=== PATIENT | male | born 1945 | race Caucasian/White ===

== ENCOUNTER 2021-02-07 10:21 | Inpatient (IN) ==
[2021-02-09] MEDS ORDERED: Nitroglycerin 0.4 MG TAB.SUBL SL PRN (17:23)
[2021-02-09] MEDS: *HR* Metformin 500 MG TABLET PO SCH (21:05)
[2021-02-09] MEDS: Pregabalin 75 MG CAPSULE PO SCH (21:05)
[2021-02-09] MEDS: valACYclovir 500 MG TABLET PO SCH (21:06)
[2021-02-09] MEDS: Budesonide/Formoterol 160/4.5 1 PUFF INH IH SCH (21:23)
[2021-02-10 07:36] LABS: Basophils # 0.1 K/mcL (0.0-0.2); Basophils % 0.4 %; Hematocrit 34.7 % (37.5-50.1); Hemoglobin 11.1 g/dL (12.9-16.9); Lymphocytes # 4.3 K/mcL (0.6-4.6); Lymphocytes % 28.2 %; Mean Corpuscular Hemoglobin 30.7 pg (28.0-33.3); Mean Corpuscular Volume 95.9 fL (83.0-100.0); Mean Platelet Volume 11.8 fL (9.4-12.4); Monocytes # 1.3 K/mcL (0.0-1.3); Monocytes % 8.2 %; Neutrophils # 9.3 K/mcL (1.6-8.9); Platelet Count 208 K/mcL (140-400); Red Blood Count 3.62 M/mcL (4.19-5.50); Red Cell Distribution Width 14.1 % (11.5-14.5); Segmented Neutrophils % 61.2 %; White Blood Count 15.2 K/mcL (4.3-11.1)
[2021-02-10 08:11] LABS: BUN/Creatinine Ratio 48 (6-26); Blood Urea Nitrogen 47 mg/dL (8-23); Calcium 8.7 mg/dL (8.6-10.3); Carbon Dioxide 45 mEq/L (23-29); Chloride 93 mEq/L (98-107); Glucose 191 mg/dL (70-105); Osmolality,Calculated 309 (280-300); Potassium 5.1 mEq/L (3.5-5.1); Sodium 141 mEq/L (136-145); eGFR For African Americans > 60 (> 60); eGFR For Non-African Americans > 60 (> 60)
[2021-02-10] MEDS: Fenofibrate 54 MG TABLET PO SCH (08:44)
[2021-02-10] MEDS: Isosorbide MONOnitrate (24 HR) 30 MG TAB.ER.24H PO SCH (08:45)
[2021-02-10] MEDS: *HR* Rivaroxaban 10 MG TABLET PO SCH (08:45)
[2021-02-10] MEDS: dexAMETHasone 4 MG TABLET PO SCH (08:45)
[2021-02-10] MEDS: Pregabalin 75 MG CAPSULE PO SCH ×2 (08:45→20:31)
[2021-02-10] MEDS: Bumetanide 1 MG TABLET PO SCH ×2 (08:45→16:52)
[2021-02-10] MEDS: Cyanocobalamin (B-12) 1,000 MCG TABLET PO SCH (08:45)
[2021-02-10] MEDS: *HR* Metformin 500 MG TABLET PO SCH ×2 (08:45→20:31)
[2021-02-10] MEDS: Spironolactone 25 MG TABLET PO SCH (08:46)
[2021-02-10] MEDS: amLODIPine 5 MG TABLET PO SCH (08:47)
[2021-02-10] MEDS: *HR* Glimepiride 2 MG TABLET PO SCH (08:47)
[2021-02-10] MEDS: Famotidine 20 MG TABLET PO SCH (08:47)
[2021-02-10] MEDS: allopurinoL 300 MG TABLET PO SCH (08:47)
[2021-02-10] MEDS: Finasteride 5 MG TABLET PO SCH (08:48)
[2021-02-10] MEDS: Budesonide/Formoterol 160/4.5 1 PUFF INH IH SCH ×2 (10:03→20:43)
[2021-02-10] MEDS ORDERED: Dextrose Gel 15 GM/37.5 ML TUBE PO PRN ×2 (11:55)
[2021-02-10] MEDS ORDERED: *HR* Dextrose 50 % in Water (Vial) 50 ML VIAL IVP PRN (11:55)
[2021-02-10] MEDS ORDERED: D5% in Water 1,000 ML IVC PRN (11:55)
[2021-02-10] MEDS: Insulin LISPRO 300 UNITS/3 ML VIAL SUBQ SCH ×2 (12:15→16:52)
[2021-02-10] MEDS: valACYclovir 500 MG TABLET PO SCH (16:52)
[2021-02-10] MEDS: Loratadine 10 MG TABLET PO SCH (16:52)
[2021-02-10] MEDS: Sennosides/Docusate Sodium TABLET PO SCH (20:29)
[2021-02-10] MEDS: acetaZOLAMIDE 250 MG TABLET PO SCH (20:30)
[2021-02-10] MEDS: Insulin DETEMIR 100 UNIT/ML X5UNITS SUBQ SCH (20:34)
[2021-02-10] MEDS ORDERED: Insulin DETEMIR 100 UNIT/ML X5UNITS SUBQ SCH (21:00)
[2021-02-11 08:13] LABS: BUN/Creatinine Ratio 39 (6-26); Blood Urea Nitrogen 44 mg/dL (8-23); Calcium 8.4 mg/dL (8.6-10.3); Carbon Dioxide 42 mEq/L (23-29); Chloride 96 mEq/L (98-107); Glucose 101 mg/dL (70-105); Osmolality,Calculated 301 (280-300); Potassium 4.3 mEq/L (3.5-5.1); Sodium 140 mEq/L (136-145); eGFR For African Americans > 60 (> 60); eGFR For Non-African Americans > 60 (> 60)
[2021-02-11] MEDS: Insulin LISPRO 300 UNITS/3 ML VIAL SUBQ SCH ×3 (08:50→16:30)
[2021-02-11] MEDS: Bumetanide 1 MG TABLET PO SCH ×2 (08:56→16:58)
[2021-02-11] MEDS: *HR* Metformin 500 MG TABLET PO SCH ×2 (08:56→22:09)
[2021-02-11] MEDS: Cyanocobalamin (B-12) 1,000 MCG TABLET PO SCH (08:57)
[2021-02-11] MEDS: *HR* Rivaroxaban 10 MG TABLET PO SCH (08:57)
[2021-02-11] MEDS: Finasteride 5 MG TABLET PO SCH (08:57)
[2021-02-11] MEDS: Fenofibrate 54 MG TABLET PO SCH (08:57)
[2021-02-11] MEDS: Sennosides/Docusate Sodium TABLET PO SCH ×2 (08:57→22:09)
[2021-02-11] MEDS: allopurinoL 300 MG TABLET PO SCH (08:57)
[2021-02-11] MEDS: amLODIPine 5 MG TABLET PO SCH (08:58)
[2021-02-11] MEDS: dexAMETHasone 4 MG TABLET PO SCH (08:58)
[2021-02-11] MEDS: Isosorbide MONOnitrate (24 HR) 30 MG TAB.ER.24H PO SCH (08:58)
[2021-02-11] MEDS: acetaZOLAMIDE 250 MG TABLET PO SCH ×2 (08:59→22:08)
[2021-02-11] MEDS: Insulin DETEMIR 100 UNIT/ML X5UNITS SUBQ SCH ×2 (08:59→22:12)
[2021-02-11] MEDS: *HR* Glimepiride 2 MG TABLET PO SCH (08:59)
[2021-02-11] MEDS: Pregabalin 75 MG CAPSULE PO SCH ×2 (08:59→22:08)
[2021-02-11] MEDS: Famotidine 20 MG TABLET PO SCH (08:59)
[2021-02-11] MEDS: Budesonide/Formoterol 160/4.5 1 PUFF INH IH SCH ×2 (09:51→21:29)
[2021-02-11] MEDS: valACYclovir 500 MG TABLET PO SCH (16:57)
[2021-02-11] MEDS: Loratadine 10 MG TABLET PO SCH (16:58)
[2021-02-12] MEDS: Insulin LISPRO 300 UNITS/3 ML VIAL SUBQ SCH ×3 (08:25→16:34)
[2021-02-12] MEDS: *HR* Metformin 500 MG TABLET PO SCH ×3 (08:26→21:05)
[2021-02-12] MEDS: Sennosides/Docusate Sodium TABLET PO SCH ×2 (08:26→21:06)
[2021-02-12] MEDS: Famotidine 20 MG TABLET PO SCH (08:26)
[2021-02-12] MEDS: Bumetanide 1 MG TABLET PO SCH ×2 (08:27→17:42)
[2021-02-12] MEDS: allopurinoL 300 MG TABLET PO SCH (08:27)
[2021-02-12] MEDS: *HR* Glimepiride 2 MG TABLET PO SCH (08:27)
[2021-02-12] MEDS: Finasteride 5 MG TABLET PO SCH (08:27)
[2021-02-12] MEDS: Cyanocobalamin (B-12) 1,000 MCG TABLET PO SCH (08:27)
[2021-02-12] MEDS: Pregabalin 75 MG CAPSULE PO SCH ×2 (08:27→21:07)
[2021-02-12] MEDS: *HR* Rivaroxaban 10 MG TABLET PO SCH (08:27)
[2021-02-12] MEDS: amLODIPine 5 MG TABLET PO SCH (08:27)
[2021-02-12] MEDS: Isosorbide MONOnitrate (24 HR) 30 MG TAB.ER.24H PO SCH (08:27)
[2021-02-12] MEDS: acetaZOLAMIDE 250 MG TABLET PO SCH ×2 (08:28→21:07)
[2021-02-12] MEDS: dexAMETHasone 4 MG TABLET PO SCH (08:28)
[2021-02-12] MEDS: Fenofibrate 54 MG TABLET PO SCH (08:28)
[2021-02-12] MEDS: Insulin DETEMIR 100 UNIT/ML X5UNITS SUBQ SCH ×2 (09:33→20:59)
[2021-02-12] MEDS: Budesonide/Formoterol 160/4.5 1 PUFF INH IH SCH ×2 (09:41→20:39)
[2021-02-12] MEDS: valACYclovir 500 MG TABLET PO SCH (17:42)
[2021-02-12] MEDS: Loratadine 10 MG TABLET PO SCH (17:43)
[2021-02-13 07:23] LABS: BUN/Creatinine Ratio 35 (6-26); Blood Urea Nitrogen 36 mg/dL (8-23); Calcium 8.4 mg/dL (8.6-10.3); Carbon Dioxide 35 mEq/L (23-29); Chloride 100 mEq/L (98-107); Glucose 99 mg/dL (70-105); Osmolality,Calculated 298 (280-300); Potassium 3.7 mEq/L (3.5-5.1); Sodium 140 mEq/L (136-145); eGFR For African Americans > 60 (> 60); eGFR For Non-African Americans > 60 (> 60)
[2021-02-13 08:10] LABS: Hematocrit 36.2 % (37.5-50.1); Hemoglobin 11.5 g/dL (12.9-16.9); Mean Corpuscular HGB Conc 31.8 g/dL (31.6-35.5); Mean Corpuscular Hemoglobin 30.7 pg (28.0-33.3); Mean Corpuscular Volume 96.8 fL (83.0-100.0); Mean Platelet Volume 12.4 fL (9.4-12.4); Platelet Count 166 K/mcL (140-400); Red Blood Count 3.74 M/mcL (4.19-5.50); Red Cell Distribution Width 14.3 % (11.5-14.5); White Blood Count 14.2 K/mcL (4.3-11.1)
[2021-02-13] MEDS: Insulin LISPRO 300 UNITS/3 ML VIAL SUBQ SCH ×3 (08:18→17:13)
[2021-02-13] MEDS: Bumetanide 1 MG TABLET PO SCH ×2 (08:28→17:22)
[2021-02-13] MEDS: *HR* Metformin 500 MG TABLET PO SCH ×2 (08:28→20:40)
[2021-02-13] MEDS: acetaZOLAMIDE 250 MG TABLET PO SCH (08:28)
[2021-02-13] MEDS: Cyanocobalamin (B-12) 1,000 MCG TABLET PO SCH (08:29)
[2021-02-13] MEDS: Famotidine 20 MG TABLET PO SCH (08:29)
[2021-02-13] MEDS: *HR* Rivaroxaban 10 MG TABLET PO SCH (08:29)
[2021-02-13] MEDS: Finasteride 5 MG TABLET PO SCH (08:29)
[2021-02-13] MEDS: allopurinoL 300 MG TABLET PO SCH (08:30)
[2021-02-13] MEDS: *HR* Glimepiride 2 MG TABLET PO SCH (08:30)
[2021-02-13] MEDS: Fenofibrate 54 MG TABLET PO SCH (08:30)
[2021-02-13] MEDS: amLODIPine 5 MG TABLET PO SCH (08:30)
[2021-02-13] MEDS: Isosorbide MONOnitrate (24 HR) 30 MG TAB.ER.24H PO SCH (08:30)
[2021-02-13] MEDS: Sennosides/Docusate Sodium TABLET PO SCH ×2 (08:30→20:40)
[2021-02-13] MEDS: Pregabalin 75 MG CAPSULE PO SCH ×2 (08:30→20:40)
[2021-02-13] MEDS: Insulin DETEMIR 100 UNIT/ML X5UNITS SUBQ SCH ×2 (08:30→20:40)
[2021-02-13] MEDS: Budesonide/Formoterol 160/4.5 1 PUFF INH IH SCH ×2 (11:15→22:57)
[2021-02-13] MEDS: Loratadine 10 MG TABLET PO SCH (17:22)
[2021-02-13] MEDS: valACYclovir 500 MG TABLET PO SCH (17:22)
[2021-02-14] MEDS: Insulin LISPRO 300 UNITS/3 ML VIAL SUBQ SCH ×3 (07:24→16:33)
[2021-02-14] MEDS: Insulin DETEMIR 100 UNIT/ML X5UNITS SUBQ SCH ×2 (09:39→20:10)
[2021-02-14] MEDS: amLODIPine 5 MG TABLET PO SCH (09:39)
[2021-02-14] MEDS: Sennosides/Docusate Sodium TABLET PO SCH ×2 (09:40→20:09)
[2021-02-14] MEDS: *HR* Metformin 500 MG TABLET PO SCH ×2 (09:40→20:10)
[2021-02-14] MEDS: allopurinoL 300 MG TABLET PO SCH (09:40)
[2021-02-14] MEDS: Famotidine 20 MG TABLET PO SCH (09:40)
[2021-02-14] MEDS: *HR* Glimepiride 2 MG TABLET PO SCH (09:40)
[2021-02-14] MEDS: Isosorbide MONOnitrate (24 HR) 30 MG TAB.ER.24H PO SCH (09:40)
[2021-02-14] MEDS: Pregabalin 75 MG CAPSULE PO SCH ×2 (09:40→20:10)
[2021-02-14] MEDS: Finasteride 5 MG TABLET PO SCH (09:40)
[2021-02-14] MEDS: *HR* Rivaroxaban 10 MG TABLET PO SCH (09:40)
[2021-02-14] MEDS: Bumetanide 1 MG TABLET PO SCH ×2 (09:41→18:12)
[2021-02-14] MEDS: Cyanocobalamin (B-12) 1,000 MCG TABLET PO SCH (09:41)
[2021-02-14] MEDS: Fenofibrate 54 MG TABLET PO SCH (09:41)
[2021-02-14] MEDS: Budesonide/Formoterol 160/4.5 1 PUFF INH IH SCH ×2 (10:11→21:36)
[2021-02-14] MEDS: valACYclovir 500 MG TABLET PO SCH (18:12)
[2021-02-14] MEDS: Loratadine 10 MG TABLET PO SCH (18:12)
[2021-02-15] MEDS: Insulin LISPRO 300 UNITS/3 ML VIAL SUBQ SCH ×3 (07:57→16:59)
[2021-02-15] MEDS: Insulin DETEMIR 100 UNIT/ML X5UNITS SUBQ SCH ×2 (07:57→20:39)
[2021-02-15] MEDS: Fenofibrate 54 MG TABLET PO SCH (08:56)
[2021-02-15] MEDS: *HR* Metformin 500 MG TABLET PO SCH ×2 (08:56→20:55)
[2021-02-15] MEDS: amLODIPine 5 MG TABLET PO SCH (08:56)
[2021-02-15] MEDS: Famotidine 20 MG TABLET PO SCH (08:57)
[2021-02-15] MEDS: Isosorbide MONOnitrate (24 HR) 30 MG TAB.ER.24H PO SCH (08:57)
[2021-02-15] MEDS: *HR* Rivaroxaban 10 MG TABLET PO SCH (08:57)
[2021-02-15] MEDS: Pregabalin 75 MG CAPSULE PO SCH ×2 (08:57→20:43)
[2021-02-15] MEDS: allopurinoL 300 MG TABLET PO SCH (08:57)
[2021-02-15] MEDS: Finasteride 5 MG TABLET PO SCH (08:57)
[2021-02-15] MEDS: Cyanocobalamin (B-12) 1,000 MCG TABLET PO SCH (08:57)
[2021-02-15] MEDS: Sennosides/Docusate Sodium TABLET PO SCH ×2 (08:58→20:55)
[2021-02-15] MEDS: Spironolactone 25 MG TABLET PO SCH (09:05)
[2021-02-15] MEDS: Bumetanide 1 MG TABLET PO SCH ×2 (09:05→18:04)
[2021-02-15] MEDS: *HR* Glimepiride 2 MG TABLET PO SCH (09:06)
[2021-02-15] MEDS: Budesonide/Formoterol 160/4.5 1 PUFF INH IH SCH ×2 (10:18→22:16)
[2021-02-15] MEDS: Loratadine 10 MG TABLET PO SCH (18:05)
[2021-02-15] MEDS: valACYclovir 500 MG TABLET PO SCH (18:06)
[2021-02-16] MEDS: Isosorbide MONOnitrate (24 HR) 30 MG TAB.ER.24H PO SCH (08:52)
[2021-02-16] MEDS: Finasteride 5 MG TABLET PO SCH (08:52)
[2021-02-16] MEDS: Fenofibrate 54 MG TABLET PO SCH (08:53)
[2021-02-16] MEDS: Pregabalin 75 MG CAPSULE PO SCH ×2 (08:53→20:13)
[2021-02-16] MEDS: *HR* Rivaroxaban 10 MG TABLET PO SCH (08:53)
[2021-02-16] MEDS: Cyanocobalamin (B-12) 1,000 MCG TABLET PO SCH (08:53)
[2021-02-16] MEDS: *HR* Metformin 500 MG TABLET PO SCH ×2 (08:53→20:13)
[2021-02-16] MEDS: allopurinoL 300 MG TABLET PO SCH (08:53)
[2021-02-16] MEDS: *HR* Glimepiride 2 MG TABLET PO SCH (08:53)
[2021-02-16] MEDS: Famotidine 20 MG TABLET PO SCH (08:53)
[2021-02-16] MEDS: amLODIPine 5 MG TABLET PO SCH (08:54)
[2021-02-16] MEDS: Insulin DETEMIR 100 UNIT/ML X5UNITS SUBQ SCH ×2 (08:54→20:13)
[2021-02-16] MEDS: Bumetanide 1 MG TABLET PO SCH ×2 (08:54→16:46)
[2021-02-16] MEDS: Spironolactone 25 MG TABLET PO SCH (08:54)
[2021-02-16] MEDS: Insulin LISPRO 300 UNITS/3 ML VIAL SUBQ SCH ×3 (08:54→16:50)
[2021-02-16] MEDS: Sennosides/Docusate Sodium TABLET PO SCH ×2 (08:55→20:13)
[2021-02-16] MEDS: Budesonide/Formoterol 160/4.5 1 PUFF INH IH SCH ×2 (10:02→22:27)
[2021-02-16] MEDS: valACYclovir 500 MG TABLET PO SCH (16:51)
[2021-02-16] MEDS: Loratadine 10 MG TABLET PO SCH (16:51)
[2021-02-17 06:59] LABS: Hematocrit 34.9 % (37.5-50.1); Hemoglobin 11.1 g/dL (12.9-16.9); Mean Corpuscular HGB Conc 31.8 g/dL (31.6-35.5); Mean Corpuscular Hemoglobin 30.9 pg (28.0-33.3); Mean Corpuscular Volume 97.2 fL (83.0-100.0); Mean Platelet Volume 11.9 fL (9.4-12.4); Red Blood Count 3.59 M/mcL (4.19-5.50)
[2021-02-17 07:02] LABS: Platelet Count 91 K/mcL (140-400)
[2021-02-17 07:14] LABS: BUN/Creatinine Ratio 23 (6-26); Blood Urea Nitrogen 19 mg/dL (8-23); Calcium 7.9 mg/dL (8.6-10.3); Carbon Dioxide 29 mEq/L (23-29); Chloride 107 mEq/L (98-107); Glucose 81 mg/dL (70-105); Osmolality,Calculated 293 (280-300); Potassium 4.2 mEq/L (3.5-5.1); Sodium 141 mEq/L (136-145); eGFR For African Americans > 60 (> 60); eGFR For Non-African Americans > 60 (> 60)
[2021-02-17] MEDS: Insulin LISPRO 300 UNITS/3 ML VIAL SUBQ SCH ×3 (07:14→16:55)
[2021-02-17] MEDS: *HR* Rivaroxaban 10 MG TABLET PO SCH (08:48)
[2021-02-17] MEDS: Famotidine 20 MG TABLET PO SCH (08:49)
[2021-02-17] MEDS: Fenofibrate 54 MG TABLET PO SCH (08:49)
[2021-02-17] MEDS: Sennosides/Docusate Sodium TABLET PO SCH ×2 (08:50→20:32)
[2021-02-17] MEDS: Finasteride 5 MG TABLET PO SCH (08:50)
[2021-02-17] MEDS: Cyanocobalamin (B-12) 1,000 MCG TABLET PO SCH (08:50)
[2021-02-17] MEDS: Spironolactone 25 MG TABLET PO SCH (08:51)
[2021-02-17] MEDS: amLODIPine 5 MG TABLET PO SCH (08:51)
[2021-02-17] MEDS: Pregabalin 75 MG CAPSULE PO SCH ×2 (08:51→20:32)
[2021-02-17] MEDS: *HR* Glimepiride 2 MG TABLET PO SCH (08:51)
[2021-02-17] MEDS: Isosorbide MONOnitrate (24 HR) 30 MG TAB.ER.24H PO SCH (08:51)
[2021-02-17] MEDS: Insulin DETEMIR 100 UNIT/ML X5UNITS SUBQ SCH ×2 (08:52→20:32)
[2021-02-17] MEDS: allopurinoL 300 MG TABLET PO SCH (08:52)
[2021-02-17] MEDS: *HR* Metformin 500 MG TABLET PO SCH ×2 (08:52→20:32)
[2021-02-17] MEDS: Bumetanide 1 MG TABLET PO SCH (08:52)
[2021-02-17] MEDS: Budesonide/Formoterol 160/4.5 1 PUFF INH IH SCH ×2 (09:53→22:22)
[2021-02-17] MEDS: Loratadine 10 MG TABLET PO SCH (17:26)
[2021-02-17] MEDS: valACYclovir 500 MG TABLET PO SCH (17:26)
[2021-02-18] MEDS: Insulin LISPRO 300 UNITS/3 ML VIAL SUBQ SCH ×3 (08:59→16:07)
[2021-02-18] MEDS: Famotidine 20 MG TABLET PO SCH (09:03)
[2021-02-18] MEDS: Sennosides/Docusate Sodium TABLET PO SCH ×2 (09:03→20:17)
[2021-02-18] MEDS: Fenofibrate 54 MG TABLET PO SCH (09:03)
[2021-02-18] MEDS: Insulin DETEMIR 100 UNIT/ML X5UNITS SUBQ SCH ×2 (09:03→20:17)
[2021-02-18] MEDS: *HR* Rivaroxaban 10 MG TABLET PO SCH (09:03)
[2021-02-18] MEDS: Finasteride 5 MG TABLET PO SCH (09:03)
[2021-02-18] MEDS: Bumetanide 1 MG TABLET PO SCH ×2 (09:04→16:33)
[2021-02-18] MEDS: allopurinoL 300 MG TABLET PO SCH (09:04)
[2021-02-18] MEDS: *HR* Metformin 500 MG TABLET PO SCH ×2 (09:04→20:14)
[2021-02-18] MEDS: Spironolactone 25 MG TABLET PO SCH (09:04)
[2021-02-18] MEDS: amLODIPine 5 MG TABLET PO SCH (09:04)
[2021-02-18] MEDS: Cyanocobalamin (B-12) 1,000 MCG TABLET PO SCH (09:04)
[2021-02-18] MEDS: Pregabalin 75 MG CAPSULE PO SCH ×2 (09:05→20:16)
[2021-02-18] MEDS: Isosorbide MONOnitrate (24 HR) 30 MG TAB.ER.24H PO SCH (09:05)
[2021-02-18] MEDS: *HR* Glimepiride 2 MG TABLET PO SCH (09:05)
[2021-02-18] MEDS: Budesonide/Formoterol 160/4.5 1 PUFF INH IH SCH ×2 (09:18→21:03)
[2021-02-18] MEDS: valACYclovir 500 MG TABLET PO SCH (16:33)
[2021-02-18] MEDS: Loratadine 10 MG TABLET PO SCH (16:34)
[2021-02-19] MEDS: Bumetanide 1 MG TABLET PO SCH ×2 (09:02→16:32)
[2021-02-19] MEDS: Famotidine 20 MG TABLET PO SCH (09:02)
[2021-02-19] MEDS: Sennosides/Docusate Sodium TABLET PO SCH ×2 (09:02→19:36)
[2021-02-19] MEDS: *HR* Rivaroxaban 10 MG TABLET PO SCH (09:02)
[2021-02-19] MEDS: Finasteride 5 MG TABLET PO SCH (09:02)
[2021-02-19] MEDS: Pregabalin 75 MG CAPSULE PO SCH ×2 (09:03→19:36)
[2021-02-19] MEDS: Fenofibrate 54 MG TABLET PO SCH (09:03)
[2021-02-19] MEDS: allopurinoL 300 MG TABLET PO SCH (09:03)
[2021-02-19] MEDS: Cyanocobalamin (B-12) 1,000 MCG TABLET PO SCH (09:03)
[2021-02-19] MEDS: Spironolactone 25 MG TABLET PO SCH (09:03)
[2021-02-19] MEDS: *HR* Metformin 500 MG TABLET PO SCH ×2 (09:03→19:36)
[2021-02-19] MEDS: amLODIPine 5 MG TABLET PO SCH (09:03)
[2021-02-19] MEDS: *HR* Glimepiride 2 MG TABLET PO SCH (09:03)
[2021-02-19] MEDS: Isosorbide MONOnitrate (24 HR) 30 MG TAB.ER.24H PO SCH (09:03)
[2021-02-19] MEDS: Insulin DETEMIR 100 UNIT/ML X5UNITS SUBQ SCH (09:04)
[2021-02-19] MEDS: Insulin LISPRO 300 UNITS/3 ML VIAL SUBQ SCH ×3 (09:08→16:33)
[2021-02-19] MEDS: Budesonide/Formoterol 160/4.5 1 PUFF INH IH SCH ×2 (09:37→20:54)
[2021-02-19] MEDS: valACYclovir 500 MG TABLET PO SCH (17:15)
[2021-02-19] MEDS: Loratadine 10 MG TABLET PO SCH (17:15)
[2021-02-20] MEDS: Insulin LISPRO 300 UNITS/3 ML VIAL SUBQ SCH ×3 (09:00→16:50)
[2021-02-20] MEDS: Bumetanide 1 MG TABLET PO SCH ×2 (10:00→17:07)
[2021-02-20] MEDS: Finasteride 5 MG TABLET PO SCH (10:00)
[2021-02-20] MEDS: Sennosides/Docusate Sodium TABLET PO SCH ×2 (10:00→21:40)
[2021-02-20] MEDS: Pregabalin 75 MG CAPSULE PO SCH ×2 (10:00→21:41)
[2021-02-20] MEDS: *HR* Metformin 500 MG TABLET PO SCH ×2 (10:01→21:39)
[2021-02-20] MEDS: Spironolactone 25 MG TABLET PO SCH (10:02)
[2021-02-20] MEDS: *HR* Rivaroxaban 10 MG TABLET PO SCH (10:02)
[2021-02-20] MEDS: allopurinoL 300 MG TABLET PO SCH (10:02)
[2021-02-20] MEDS: *HR* Glimepiride 2 MG TABLET PO SCH (10:02)
[2021-02-20] MEDS: Fenofibrate 54 MG TABLET PO SCH (10:02)
[2021-02-20] MEDS: Isosorbide MONOnitrate (24 HR) 30 MG TAB.ER.24H PO SCH (10:03)
[2021-02-20] MEDS: Famotidine 20 MG TABLET PO SCH (10:03)
[2021-02-20] MEDS: amLODIPine 5 MG TABLET PO SCH (10:03)
[2021-02-20] MEDS: Cyanocobalamin (B-12) 1,000 MCG TABLET PO SCH (10:03)
[2021-02-20] MEDS: Budesonide/Formoterol 160/4.5 1 PUFF INH IH SCH ×2 (10:07→21:53)
[2021-02-20] MEDS: valACYclovir 500 MG TABLET PO SCH (17:07)
[2021-02-20] MEDS: Loratadine 10 MG TABLET PO SCH (17:08)
[2021-02-21] MEDS: Budesonide/Formoterol 160/4.5 1 PUFF INH IH SCH ×2 (08:43→21:36)
[2021-02-21] MEDS: *HR* Glimepiride 2 MG TABLET PO SCH (09:07)
[2021-02-21] MEDS: Pregabalin 75 MG CAPSULE PO SCH ×2 (09:07→20:11)
[2021-02-21] MEDS: Insulin LISPRO 300 UNITS/3 ML VIAL SUBQ SCH ×3 (09:07→17:54)
[2021-02-21] MEDS: Famotidine 20 MG TABLET PO SCH (09:07)
[2021-02-21] MEDS: Bumetanide 1 MG TABLET PO SCH ×2 (09:08→17:55)
[2021-02-21] MEDS: Finasteride 5 MG TABLET PO SCH (09:08)
[2021-02-21] MEDS: Spironolactone 25 MG TABLET PO SCH (09:08)
[2021-02-21] MEDS: *HR* Rivaroxaban 10 MG TABLET PO SCH (09:09)
[2021-02-21] MEDS: Sennosides/Docusate Sodium TABLET PO SCH ×2 (09:09→20:14)
[2021-02-21] MEDS: Cyanocobalamin (B-12) 1,000 MCG TABLET PO SCH (09:09)
[2021-02-21] MEDS: Fenofibrate 54 MG TABLET PO SCH (09:09)
[2021-02-21] MEDS: *HR* Metformin 500 MG TABLET PO SCH ×2 (09:09→17:55)
[2021-02-21] MEDS: allopurinoL 300 MG TABLET PO SCH (09:09)
[2021-02-21] MEDS: amLODIPine 5 MG TABLET PO SCH (09:10)
[2021-02-21] MEDS: Isosorbide MONOnitrate (24 HR) 30 MG TAB.ER.24H PO SCH (09:10)
[2021-02-21] MEDS ORDERED: Acetaminophen 325 MG TABLET PO PRN (10:04)
[2021-02-21] MEDS: valACYclovir 500 MG TABLET PO SCH (17:55)
[2021-02-21] MEDS: Loratadine 10 MG TABLET PO SCH (17:56)
[2021-02-22 07:51] LABS: Basophils % 0.4 %; Eosinophils % 0.3 %; Hematocrit 34.3 % (37.5-50.1); Immature Granulocytes % 0.5 % (0-4); Lymphocytes # 2.3 K/mcL (0.6-4.6); Lymphocytes % 28.9 %; Mean Corpuscular HGB Conc 32.1 g/dL (31.6-35.5); Mean Corpuscular Hemoglobin 31.3 pg (28.0-33.3); Mean Corpuscular Volume 97.7 fL (83.0-100.0); Mean Platelet Volume 11.4 fL (9.4-12.4); Monocytes % 12.2 %; Neutrophils # 4.5 K/mcL (1.6-8.9); Red Blood Count 3.51 M/mcL (4.19-5.50); Red Cell Distribution Width 15.2 % (11.5-14.5); Segmented Neutrophils % 57.7 %; White Blood Count 7.8 K/mcL (4.3-11.1)
[2021-02-22 08:02] LABS: Platelet Count 94 K/mcL (140-400)
[2021-02-22 08:11] LABS: BUN/Creatinine Ratio 24 (6-26); Blood Urea Nitrogen 19 mg/dL (8-23); Calcium 8.1 mg/dL (8.6-10.3); Carbon Dioxide 32 mEq/L (23-29); Chloride 104 mEq/L (98-107); Glucose 118 mg/dL (70-105); Osmolality,Calculated 297 (280-300); Potassium 3.9 mEq/L (3.5-5.1); Sodium 142 mEq/L (136-145); eGFR For African Americans > 60 (> 60); eGFR For Non-African Americans > 60 (> 60)
[2021-02-22] MEDS: Insulin LISPRO 300 UNITS/3 ML VIAL SUBQ SCH ×3 (08:44→16:48)
[2021-02-22] MEDS: Finasteride 5 MG TABLET PO SCH (08:45)
[2021-02-22] MEDS: Famotidine 20 MG TABLET PO SCH (08:45)
[2021-02-22] MEDS: Cyanocobalamin (B-12) 1,000 MCG TABLET PO SCH (08:45)
[2021-02-22] MEDS: Fenofibrate 54 MG TABLET PO SCH (08:45)
[2021-02-22] MEDS: *HR* Glimepiride 2 MG TABLET PO SCH (08:45)
[2021-02-22] MEDS: allopurinoL 300 MG TABLET PO SCH (08:45)
[2021-02-22] MEDS: *HR* Rivaroxaban 10 MG TABLET PO SCH (08:46)
[2021-02-22] MEDS: Bumetanide 1 MG TABLET PO SCH ×2 (08:46→16:35)
[2021-02-22] MEDS: Spironolactone 25 MG TABLET PO SCH (08:46)
[2021-02-22] MEDS: Sennosides/Docusate Sodium TABLET PO SCH ×2 (08:47→20:26)
[2021-02-22] MEDS: amLODIPine 5 MG TABLET PO SCH (08:47)
[2021-02-22] MEDS: Pregabalin 75 MG CAPSULE PO SCH ×2 (08:47→20:27)
[2021-02-22] MEDS: *HR* Metformin 500 MG TABLET PO SCH ×2 (08:47→16:35)
[2021-02-22] MEDS: Isosorbide MONOnitrate (24 HR) 30 MG TAB.ER.24H PO SCH (08:47)
[2021-02-22] MEDS: Budesonide/Formoterol 160/4.5 1 PUFF INH IH SCH ×2 (08:50→21:41)
[2021-02-22] MEDS: Loratadine 10 MG TABLET PO SCH (16:35)
[2021-02-22] MEDS: valACYclovir 500 MG TABLET PO SCH (16:36)
[2021-02-23] MEDS: Budesonide/Formoterol 160/4.5 1 PUFF INH IH SCH ×2 (08:35→22:25)
[2021-02-23] MEDS: amLODIPine 5 MG TABLET PO SCH (09:06)
[2021-02-23] MEDS: Isosorbide MONOnitrate (24 HR) 30 MG TAB.ER.24H PO SCH (09:06)
[2021-02-23] MEDS: Cyanocobalamin (B-12) 1,000 MCG TABLET PO SCH (09:06)
[2021-02-23] MEDS: Pregabalin 75 MG CAPSULE PO SCH ×2 (09:06→19:50)
[2021-02-23] MEDS: Finasteride 5 MG TABLET PO SCH (09:06)
[2021-02-23] MEDS: allopurinoL 300 MG TABLET PO SCH (09:06)
[2021-02-23] MEDS: *HR* Rivaroxaban 10 MG TABLET PO SCH (09:06)
[2021-02-23] MEDS: Fenofibrate 54 MG TABLET PO SCH (09:07)
[2021-02-23] MEDS: *HR* Glimepiride 2 MG TABLET PO SCH (09:07)
[2021-02-23] MEDS: Sennosides/Docusate Sodium TABLET PO SCH ×2 (09:07→19:50)
[2021-02-23] MEDS: *HR* Metformin 500 MG TABLET PO SCH ×2 (09:07→16:55)
[2021-02-23] MEDS: Famotidine 20 MG TABLET PO SCH (09:07)
[2021-02-23] MEDS: Spironolactone 25 MG TABLET PO SCH (09:08)
[2021-02-23] MEDS: Insulin LISPRO 300 UNITS/3 ML VIAL SUBQ SCH ×3 (09:08→16:55)
[2021-02-23] MEDS: Bumetanide 1 MG TABLET PO SCH ×2 (09:08→16:55)
[2021-02-23] MEDS: valACYclovir 500 MG TABLET PO SCH (16:55)
[2021-02-23] MEDS: Loratadine 10 MG TABLET PO SCH (16:56)
[2021-02-24] MEDS: Sennosides/Docusate Sodium TABLET PO SCH ×2 (08:03→21:17)
[2021-02-24] MEDS: Spironolactone 25 MG TABLET PO SCH (08:04)
[2021-02-24] MEDS: Isosorbide MONOnitrate (24 HR) 30 MG TAB.ER.24H PO SCH (08:04)
[2021-02-24] MEDS: *HR* Metformin 500 MG TABLET PO SCH ×2 (08:04→17:17)
[2021-02-24] MEDS: Bumetanide 1 MG TABLET PO SCH ×2 (08:04→17:17)
[2021-02-24] MEDS: *HR* Rivaroxaban 10 MG TABLET PO SCH (08:05)
[2021-02-24] MEDS: amLODIPine 5 MG TABLET PO SCH (08:05)
[2021-02-24] MEDS: allopurinoL 300 MG TABLET PO SCH (08:05)
[2021-02-24] MEDS: Fenofibrate 54 MG TABLET PO SCH (08:05)
[2021-02-24] MEDS: Cyanocobalamin (B-12) 1,000 MCG TABLET PO SCH (08:05)
[2021-02-24] MEDS: *HR* Glimepiride 2 MG TABLET PO SCH (08:05)
[2021-02-24] MEDS: Finasteride 5 MG TABLET PO SCH (08:06)
[2021-02-24] MEDS: Famotidine 20 MG TABLET PO SCH (08:06)
[2021-02-24] MEDS: Pregabalin 75 MG CAPSULE PO SCH ×2 (08:06→21:18)
[2021-02-24] MEDS: Insulin LISPRO 300 UNITS/3 ML VIAL SUBQ SCH ×3 (08:32→16:30)
[2021-02-24] MEDS: Budesonide/Formoterol 160/4.5 1 PUFF INH IH SCH ×2 (09:42→22:02)
[2021-02-24] MEDS: Loratadine 10 MG TABLET PO SCH (17:17)
[2021-02-24] MEDS: valACYclovir 500 MG TABLET PO SCH (17:17)
[2021-02-25] MEDS: *HR* Metformin 500 MG TABLET PO SCH ×2 (09:14→17:35)
[2021-02-25] MEDS: Insulin LISPRO 300 UNITS/3 ML VIAL SUBQ SCH ×3 (09:14→17:34)
[2021-02-25] MEDS: *HR* Rivaroxaban 10 MG TABLET PO SCH (09:15)
[2021-02-25] MEDS: Isosorbide MONOnitrate (24 HR) 30 MG TAB.ER.24H PO SCH (09:15)
[2021-02-25] MEDS: Cyanocobalamin (B-12) 1,000 MCG TABLET PO SCH (09:15)
[2021-02-25] MEDS: amLODIPine 5 MG TABLET PO SCH (09:15)
[2021-02-25] MEDS: Fenofibrate 54 MG TABLET PO SCH (09:15)
[2021-02-25] MEDS: *HR* Glimepiride 2 MG TABLET PO SCH (09:15)
[2021-02-25] MEDS: Pregabalin 75 MG CAPSULE PO SCH ×2 (09:15→19:52)
[2021-02-25] MEDS: Famotidine 20 MG TABLET PO SCH (09:15)
[2021-02-25] MEDS: Bumetanide 1 MG TABLET PO SCH ×2 (09:15→17:35)
[2021-02-25] MEDS: allopurinoL 300 MG TABLET PO SCH (09:16)
[2021-02-25] MEDS: Spironolactone 25 MG TABLET PO SCH (09:16)
[2021-02-25] MEDS: Finasteride 5 MG TABLET PO SCH (09:16)
[2021-02-25] MEDS: Sennosides/Docusate Sodium TABLET PO SCH ×2 (09:17→19:52)
[2021-02-25] MEDS: Budesonide/Formoterol 160/4.5 1 PUFF INH IH SCH ×2 (09:43→21:48)
[2021-02-25] MEDS: valACYclovir 500 MG TABLET PO SCH (17:35)
[2021-02-25] MEDS: Loratadine 10 MG TABLET PO SCH (17:35)
[2021-02-26] MEDS: Insulin LISPRO 300 UNITS/3 ML VIAL SUBQ SCH ×3 (07:41→16:48)
[2021-02-26] MEDS: amLODIPine 5 MG TABLET PO SCH (07:42)
[2021-02-26] MEDS: *HR* Metformin 500 MG TABLET PO SCH ×2 (07:42→16:48)
[2021-02-26] MEDS: Spironolactone 25 MG TABLET PO SCH (07:42)
[2021-02-26] MEDS: *HR* Rivaroxaban 10 MG TABLET PO SCH (07:42)
[2021-02-26] MEDS: Cyanocobalamin (B-12) 1,000 MCG TABLET PO SCH (07:42)
[2021-02-26] MEDS: *HR* Glimepiride 2 MG TABLET PO SCH (07:42)
[2021-02-26] MEDS: Sennosides/Docusate Sodium TABLET PO SCH ×2 (07:42→19:52)
[2021-02-26] MEDS: Fenofibrate 54 MG TABLET PO SCH (07:42)
[2021-02-26] MEDS: allopurinoL 300 MG TABLET PO SCH (07:43)
[2021-02-26] MEDS: Finasteride 5 MG TABLET PO SCH (07:43)
[2021-02-26] MEDS: Pregabalin 75 MG CAPSULE PO SCH ×2 (07:43→19:52)
[2021-02-26] MEDS: Bumetanide 1 MG TABLET PO SCH ×2 (07:43→16:48)
[2021-02-26] MEDS: Famotidine 20 MG TABLET PO SCH (07:43)
[2021-02-26] MEDS: Isosorbide MONOnitrate (24 HR) 30 MG TAB.ER.24H PO SCH (07:43)
[2021-02-26] MEDS: Budesonide/Formoterol 160/4.5 1 PUFF INH IH SCH ×2 (09:29→21:42)
[2021-02-26] MEDS: valACYclovir 500 MG TABLET PO SCH (16:48)
[2021-02-26] MEDS: Loratadine 10 MG TABLET PO SCH (16:48)
[2021-02-27] MEDS: Finasteride 5 MG TABLET PO SCH (07:58)
[2021-02-27] MEDS: *HR* Glimepiride 2 MG TABLET PO SCH (07:58)
[2021-02-27] MEDS: amLODIPine 5 MG TABLET PO SCH (07:58)
[2021-02-27] MEDS: Fenofibrate 54 MG TABLET PO SCH (07:58)
[2021-02-27] MEDS: Cyanocobalamin (B-12) 1,000 MCG TABLET PO SCH (07:58)
[2021-02-27] MEDS: allopurinoL 300 MG TABLET PO SCH (07:59)
[2021-02-27] MEDS: Sennosides/Docusate Sodium TABLET PO SCH ×2 (07:59→19:45)
[2021-02-27] MEDS: Bumetanide 1 MG TABLET PO SCH ×2 (07:59→16:29)
[2021-02-27] MEDS: *HR* Rivaroxaban 10 MG TABLET PO SCH (07:59)
[2021-02-27] MEDS: Spironolactone 25 MG TABLET PO SCH (07:59)
[2021-02-27] MEDS: Famotidine 20 MG TABLET PO SCH (08:00)
[2021-02-27] MEDS: Insulin LISPRO 300 UNITS/3 ML VIAL SUBQ SCH ×3 (08:00→16:30)
[2021-02-27] MEDS: Isosorbide MONOnitrate (24 HR) 30 MG TAB.ER.24H PO SCH (08:00)
[2021-02-27] MEDS: Pregabalin 75 MG CAPSULE PO SCH ×2 (08:00→19:43)
[2021-02-27] MEDS: *HR* Metformin 500 MG TABLET PO SCH ×2 (08:00→16:29)
[2021-02-27] MEDS: Fluticasone Propionate Nasal 50 MCG/SPRAY BOTTLE NS PRN (08:03)
[2021-02-27] MEDS: Budesonide/Formoterol 160/4.5 1 PUFF INH IH SCH ×2 (09:34→21:51)
[2021-02-27] MEDS: valACYclovir 500 MG TABLET PO SCH (16:29)
[2021-02-27] MEDS: Loratadine 10 MG TABLET PO SCH (16:30)
[2021-02-28] MEDS: Insulin LISPRO 300 UNITS/3 ML VIAL SUBQ SCH ×3 (07:42→16:14)
[2021-02-28] MEDS: Famotidine 20 MG TABLET PO SCH (07:44)
[2021-02-28] MEDS: Sennosides/Docusate Sodium TABLET PO SCH ×2 (07:44→21:06)
[2021-02-28] MEDS: *HR* Glimepiride 2 MG TABLET PO SCH (07:44)
[2021-02-28] MEDS: Isosorbide MONOnitrate (24 HR) 30 MG TAB.ER.24H PO SCH (07:44)
[2021-02-28] MEDS: Cyanocobalamin (B-12) 1,000 MCG TABLET PO SCH (07:44)
[2021-02-28] MEDS: Pregabalin 75 MG CAPSULE PO SCH ×2 (07:44→21:06)
[2021-02-28] MEDS: amLODIPine 5 MG TABLET PO SCH (07:44)
[2021-02-28] MEDS: Spironolactone 25 MG TABLET PO SCH (07:44)
[2021-02-28] MEDS: Bumetanide 1 MG TABLET PO SCH ×2 (07:45→16:21)
[2021-02-28] MEDS: *HR* Metformin 500 MG TABLET PO SCH ×2 (07:45→16:21)
[2021-02-28] MEDS: allopurinoL 300 MG TABLET PO SCH (07:45)
[2021-02-28] MEDS: Finasteride 5 MG TABLET PO SCH (07:45)
[2021-02-28] MEDS: Fenofibrate 54 MG TABLET PO SCH (07:48)
[2021-02-28] MEDS: *HR* Rivaroxaban 10 MG TABLET PO SCH (07:48)
[2021-02-28] MEDS: Budesonide/Formoterol 160/4.5 1 PUFF INH IH SCH ×2 (10:06→22:28)
[2021-02-28] MEDS: Fluticasone Propionate Nasal 50 MCG/SPRAY BOTTLE NS PRN (14:27)
[2021-02-28] MEDS: Loratadine 10 MG TABLET PO SCH (16:21)
[2021-02-28] MEDS: valACYclovir 500 MG TABLET PO SCH (16:21)
[2021-03-01] MEDS: Insulin LISPRO 300 UNITS/3 ML VIAL SUBQ SCH ×3 (07:41→16:28)
[2021-03-01] MEDS: Fluticasone Propionate Nasal 50 MCG/SPRAY BOTTLE NS PRN (07:41)
[2021-03-01] MEDS: Bumetanide 1 MG TABLET PO SCH ×2 (07:42→17:59)
[2021-03-01] MEDS: Famotidine 20 MG TABLET PO SCH (07:42)
[2021-03-01] MEDS: Fenofibrate 54 MG TABLET PO SCH (07:42)
[2021-03-01] MEDS: Finasteride 5 MG TABLET PO SCH (07:42)
[2021-03-01] MEDS: Pregabalin 75 MG CAPSULE PO SCH ×2 (07:42→21:09)
[2021-03-01] MEDS: amLODIPine 5 MG TABLET PO SCH (07:42)
[2021-03-01] MEDS: Sennosides/Docusate Sodium TABLET PO SCH ×2 (07:42→21:29)
[2021-03-01] MEDS: *HR* Metformin 500 MG TABLET PO SCH ×2 (07:43→18:00)
[2021-03-01] MEDS: Isosorbide MONOnitrate (24 HR) 30 MG TAB.ER.24H PO SCH (07:43)
[2021-03-01] MEDS: allopurinoL 300 MG TABLET PO SCH (07:44)
[2021-03-01] MEDS: Spironolactone 25 MG TABLET PO SCH (07:44)
[2021-03-01] MEDS: *HR* Glimepiride 2 MG TABLET PO SCH (07:44)
[2021-03-01] MEDS: Cyanocobalamin (B-12) 1,000 MCG TABLET PO SCH (07:44)
[2021-03-01] MEDS: *HR* Rivaroxaban 10 MG TABLET PO SCH (07:44)
[2021-03-01] MEDS: Budesonide/Formoterol 160/4.5 1 PUFF INH IH SCH ×2 (09:59→21:57)
[2021-03-01] MEDS: valACYclovir 500 MG TABLET PO SCH (17:59)
[2021-03-01] MEDS: Loratadine 10 MG TABLET PO SCH (17:59)
[2021-03-02] MEDS: Sennosides/Docusate Sodium TABLET PO SCH ×2 (07:40→19:45)
[2021-03-02] MEDS: Insulin LISPRO 300 UNITS/3 ML VIAL SUBQ SCH ×3 (07:40→17:00)
[2021-03-02] MEDS: amLODIPine 5 MG TABLET PO SCH (07:41)
[2021-03-02] MEDS: *HR* Rivaroxaban 10 MG TABLET PO SCH (07:41)
[2021-03-02] MEDS: Famotidine 20 MG TABLET PO SCH (07:41)
[2021-03-02] MEDS: Isosorbide MONOnitrate (24 HR) 30 MG TAB.ER.24H PO SCH (07:41)
[2021-03-02] MEDS: *HR* Metformin 500 MG TABLET PO SCH ×2 (07:41→17:01)
[2021-03-02] MEDS: allopurinoL 300 MG TABLET PO SCH (07:41)
[2021-03-02] MEDS: Cyanocobalamin (B-12) 1,000 MCG TABLET PO SCH (07:42)
[2021-03-02] MEDS: Fenofibrate 54 MG TABLET PO SCH (07:42)
[2021-03-02] MEDS: Spironolactone 25 MG TABLET PO SCH (07:42)
[2021-03-02] MEDS: *HR* Glimepiride 2 MG TABLET PO SCH (07:42)
[2021-03-02] MEDS: Bumetanide 1 MG TABLET PO SCH ×2 (07:42→17:00)
[2021-03-02] MEDS: Finasteride 5 MG TABLET PO SCH (07:42)
[2021-03-02] MEDS: Pregabalin 75 MG CAPSULE PO SCH ×2 (07:42→19:45)
[2021-03-02] MEDS: Budesonide/Formoterol 160/4.5 1 PUFF INH IH SCH ×2 (10:57→21:26)
[2021-03-02] MEDS: Loratadine 10 MG TABLET PO SCH (17:00)
[2021-03-02] MEDS: valACYclovir 500 MG TABLET PO SCH (17:01)
[2021-03-03] MEDS: Budesonide/Formoterol 160/4.5 1 PUFF INH IH SCH ×2 (07:14→22:15)
[2021-03-03] MEDS: Cyanocobalamin (B-12) 1,000 MCG TABLET PO SCH (08:40)
[2021-03-03] MEDS: Bumetanide 1 MG TABLET PO SCH ×2 (08:40→17:04)
[2021-03-03] MEDS: *HR* Rivaroxaban 10 MG TABLET PO SCH (08:40)
[2021-03-03] MEDS: allopurinoL 300 MG TABLET PO SCH (08:40)
[2021-03-03] MEDS: Spironolactone 25 MG TABLET PO SCH (08:41)
[2021-03-03] MEDS: Pregabalin 75 MG CAPSULE PO SCH ×2 (08:41→20:03)
[2021-03-03] MEDS: *HR* Metformin 500 MG TABLET PO SCH ×2 (08:41→17:04)
[2021-03-03] MEDS: Finasteride 5 MG TABLET PO SCH (08:41)
[2021-03-03] MEDS: Famotidine 20 MG TABLET PO SCH (08:41)
[2021-03-03] MEDS: Fenofibrate 54 MG TABLET PO SCH (08:42)
[2021-03-03] MEDS: *HR* Glimepiride 2 MG TABLET PO SCH (08:42)
[2021-03-03] MEDS: amLODIPine 5 MG TABLET PO SCH (08:42)
[2021-03-03] MEDS: Isosorbide MONOnitrate (24 HR) 30 MG TAB.ER.24H PO SCH (08:43)
[2021-03-03] MEDS: Sennosides/Docusate Sodium TABLET PO SCH ×2 (08:43→20:03)
[2021-03-03] MEDS: Insulin LISPRO 300 UNITS/3 ML VIAL SUBQ SCH ×3 (08:43→17:03)
[2021-03-03] MEDS: valACYclovir 500 MG TABLET PO SCH (17:04)
[2021-03-03] MEDS: Loratadine 10 MG TABLET PO SCH (17:04)
[2021-03-04] MEDS: Budesonide/Formoterol 160/4.5 1 PUFF INH IH SCH ×2 (08:25→21:25)
[2021-03-04] MEDS: Fenofibrate 54 MG TABLET PO SCH (08:47)
[2021-03-04] MEDS: Cyanocobalamin (B-12) 1,000 MCG TABLET PO SCH (08:47)
[2021-03-04] MEDS: *HR* Glimepiride 2 MG TABLET PO SCH (08:47)
[2021-03-04] MEDS: allopurinoL 300 MG TABLET PO SCH (08:47)
[2021-03-04] MEDS: *HR* Metformin 500 MG TABLET PO SCH ×2 (08:47→17:10)
[2021-03-04] MEDS: amLODIPine 5 MG TABLET PO SCH (08:47)
[2021-03-04] MEDS: *HR* Rivaroxaban 10 MG TABLET PO SCH (08:47)
[2021-03-04] MEDS: Famotidine 20 MG TABLET PO SCH (08:48)
[2021-03-04] MEDS: Sennosides/Docusate Sodium TABLET PO SCH ×2 (08:48→20:00)
[2021-03-04] MEDS: Spironolactone 25 MG TABLET PO SCH (08:49)
[2021-03-04] MEDS: Finasteride 5 MG TABLET PO SCH (08:49)
[2021-03-04] MEDS: Pregabalin 75 MG CAPSULE PO SCH ×2 (08:49→20:00)
[2021-03-04] MEDS: Bumetanide 1 MG TABLET PO SCH ×2 (08:49→17:10)
[2021-03-04] MEDS: Insulin LISPRO 300 UNITS/3 ML VIAL SUBQ SCH ×3 (08:50→17:00)
[2021-03-04] MEDS: Isosorbide MONOnitrate (24 HR) 30 MG TAB.ER.24H PO SCH (08:50)
[2021-03-04] MEDS: valACYclovir 500 MG TABLET PO SCH (17:10)
[2021-03-04] MEDS: Loratadine 10 MG TABLET PO SCH (17:11)
[2021-03-05] MEDS: Insulin LISPRO 300 UNITS/3 ML VIAL SUBQ SCH ×2 (07:47→11:00)
[2021-03-05] MEDS: Fenofibrate 54 MG TABLET PO SCH (08:26)
[2021-03-05] MEDS: *HR* Rivaroxaban 10 MG TABLET PO SCH (08:26)
[2021-03-05] MEDS: *HR* Metformin 500 MG TABLET PO SCH (08:27)
[2021-03-05] MEDS: allopurinoL 300 MG TABLET PO SCH (08:27)
[2021-03-05] MEDS: Sennosides/Docusate Sodium TABLET PO SCH (08:27)
[2021-03-05] MEDS: Famotidine 20 MG TABLET PO SCH (08:28)
[2021-03-05] MEDS: Finasteride 5 MG TABLET PO SCH (08:28)
[2021-03-05] MEDS: Spironolactone 25 MG TABLET PO SCH (08:28)
[2021-03-05] MEDS: Cyanocobalamin (B-12) 1,000 MCG TABLET PO SCH (08:29)
[2021-03-05] MEDS: Bumetanide 1 MG TABLET PO SCH (08:29)
[2021-03-05] MEDS: Pregabalin 75 MG CAPSULE PO SCH (08:30)
[2021-03-05] MEDS: *HR* Glimepiride 2 MG TABLET PO SCH (08:30)
[2021-03-05] MEDS: Budesonide/Formoterol 160/4.5 1 PUFF INH IH SCH (09:25)
[2021-03-05 09:41] VITALS: BP 103/62
[2021-03-05] MEDS: Isosorbide MONOnitrate (24 HR) 30 MG TAB.ER.24H PO SCH (10:38)
[2021-03-05] MEDS: amLODIPine 5 MG TABLET PO SCH (11:34)
== END 2021-03-05 12:24 | disposition home health service (06) | DRG 945 ==
LOC: INPPIK 02-09 18:25
PROVIDERS: ADMIT Family Medicine; ATTEND Family Medicine